=== PATIENT | female | born 1960 | race Two or more races ===

== ENCOUNTER 2025-04-24 13:07 | Emergency (ER) | payer OTHER ==
[~2025-04-24] VITALS: Ht 172.7 cm; Wt 81.6 kg
[~2025-04-24 13:07] MED LIST: DAFLONEX-XL 11300 MG; ESGIC 50-325-41 EACH; LEVOTHYROXINE25 MCG PO; METHOCARBAMOL750 MG; RAYOS5 MG
[2025-04-24] MEDS ORDERED: IPRATROPIUM BROMIDE 0.5 MG/2.5 ML AMPUL.NEB IH SCH (13:45)
[2025-04-24] MEDS ORDERED: LEVALBUTEROL HCL 1.25 MG/3 ML SOLUTION IH SCH (13:45)
[2025-04-24] MEDS ORDERED: METHYLPREDNISOLONE SOD SUCC 125 MG VIAL IV ONE (13:45)
[2025-04-24] MEDS ORDERED: FAMOTIDINE/PF 20 MG in 0.9 % SODIUM CHLORIDE 8 ML IV PUSH ONE (13:45)
[2025-04-24] MEDS ORDERED: ACETAMINOPHEN 500 MG GEL..CAP PO ONE (13:45)
[2025-04-24 14:27] LABS: BASO % 0.6 % (0.1-1.2); EOS # 0.11 (0.04-0.54); EOS % 1.7 % (0.7-7.0); LYMPH # 1.72 (1.18-3.74); LYMPH % 26.7 % (19.3-53.1); MEAN PLATELET VOLUME 9.10 fl (9.4-12.4); MONO # 0.44 (0.24-0.82); MONO % 6.8 % (4.7-12.5); NEUT # 4.11 (1.56-6.13); NEUT % 64.0 % (34.0-71.1); RED CELL DISTRIBUTION WIDTH 11.9 % (11.6-14.4)
[2025-04-24 15:29] LABS: ALT/SGPT 32.0 U/L (12-78); AST/SGOT 25.0 U/L (15-37); BILIRUBIN TOTAL 0.71 mg/dL (0.3-1.2); BUN CREA RATIO 23.0 (7.0-25.0); CREATININE SERUM 0.83 mg/dL (0.55-1.02); GFR 68.99; GLOBULINA 3.4 G/DL (2.4-3.5); GLUCOSE FASTING 103.0 mg/dL (65-100); OSMOLALITY SERUM 287.0 MOSM/KG (275-295)
[2025-04-24] MEDS ORDERED: MUCINEX1200 MG PO (15:51)
[2025-04-24] MEDS ORDERED: SINGULAIR10 MG PO (15:51)
[2025-04-24] MEDS ORDERED: IPRATROPIU0.2 MG/1 M IH (15:51)
[2025-04-24] MEDS ORDERED: CEFTRIAXONE SODIUM 1,000 MG VIAL IV ONE (16:00)
== END 2025-04-24 16:24 | disposition home or self-care (01) ==
LOC: ER 13:07
PROVIDERS: General Practice
DX: R05.8 Other specified cough (principal); R06.02 Shortness of breath; Z88.1 Allergy status to other antibiotic agents; F41.8 Other specified anxiety disorders; F32.9 Major depressive disorder, single episode, unspecified; F45.21 Hypochondriasis; Z86.11 Personal history of tuberculosis
CPT/HCPCS: 36415; 71046; 82803; 94640; 99284; J0696; J3490